=== PATIENT | male | born 1995 | race Caucasian/White ===

== ENCOUNTER 2016-05-23 20:51 | Emergency (ER) | payer SELFPAY ==
[2016-05-23 21:09] VITALS: BP 123/67; PULSE 82; TEMP 98.3; BMI 19.3
--- NOTE | 2016-05-23 21:14 | EDPRACDOC ---
- General Information Stated Complaint: DENTAL PAIN RT SIDED HEAD PAIN Time Seen by Provider: 05/23/16 21:04 Home Medications: Home Medications Amoxicillin Trihydrate [Amoxicillin] 500 mg PO TID #30 tab 05/23/16 Meloxicam [Mobic] 7.5 mg PO BID #20 tab 05/23/16 Allergies/Adverse Reactions: Allergies Allergy/AdvReac Type Severity Reaction Status Date / Time No Known Allergies Allergy Verified 05/23/16 21:13 - History of Present Illness Onset: LAST NIGHT HPI: PT PRESENTS TODAY WITH PAINFUL TOOTH SINCE LAST NIGHT. HAS BEEN BROKEN OFF FOR AWHILE, BUT JUST STARTED TO HURT. NO FEVER. Reported Tooth Problem: 4 Pain Severity: Reports: Moderate Relevant History of: Reports: None Modifying Factors: improves with: Cold, Chewing Associated Signs and Symptoms: Reports: None ED Past Medical History - History Reviewed Yes Nurses notes reviewed and agree except as marked - Patient Medical History Psychological History: Reports: Depression - Social Medical History Smoking Status: Heavy tobacco smoker (5 or more cigarettes/day or daily pipe/ cigar) Social History: Reports: Marijuana Use EDM Review of Systems - Review of Systems ROS Negative Except as Marked: Yes All systems reviewed and were negative except as marked Constitutional: No Symptoms Reported Eyes: No Symptoms Reported Ears: No Symptoms Reported Throat: No Symptoms Reported Nose: No Symptoms Reported Mouth: Tooth Pain Respiratory: No Symptoms Reported Cardiovascular: No Symptoms Reported Gastrointestinal: No Symptoms Reported Neurological: No Symptoms Reported Musculoskeletal: No Symptoms Reported Integumentary: No Symptoms Reported - Physical Exam Constitutional: Alert (Awake), No apparent distress Oriented to: Time, Person, Place Last recorded Vital Signs: Last Vital Signs Temp 98.3 F 05/23/16 21:08 Pulse 82 05/23/16 21:08 Resp 18 05/23/16 21:08 BP 123/67 05/23/16 21:08 Pulse Ox 99 05/23/16 21:08 Oxygen Pulse Oxygen Saturation 99 O2 Device Oxygen Flow Rate Fraction of Inspired Oxygen ( FIO2) - HEENT Head: Normal Eye Exam: Normal Oropharynx: Other (NOTED LARGE HOLE IN TOOTH #4; NO GUM SWELLING; MOST TEETH HAVE CAVITIES) Tympanic Membrane: Normal ENT EAC: Normal Nose: No Symptoms Reported Neck: Normal, Denies Pain, Midline - Respiratory/Cardiovascular Respiratory: Normal - CTA Cardiovascular: Normal - GI Palpation: Normal Tenderness: Non tender - Musculoskeletal Back: Normal Extremities: Normal - Integumentary Skin: Normal Lymphatics: Normal - Neurologic Cerebellar: Normal Mood Description: Normal Thought: Coherent Perception: Normal ED Tooth Problem Exam - HEENT Face: Normal Teeth: Right: Molar-2 Upper (HOLE) Gingiva: Normal Palate: Normal Mouth Range of Motion: Normal Sinuses: Normal Oropharynx: Normal Neck: Normal, Denies Pain, Midline Decision Time to Discharge: 21:12 - Departure Disposition: Home Condition: Good Final Diagnosis: Dental caries Instructions: Dental Caries (ED) Education/Counseling Given To: Patient Education/Counseling Given Regarding: Diagnosis, Treatment, Follow Up Referrals: None,No Provider [Primary Care Provider] - One Week [facility] [NonStaff] - One Week Prescriptions: New Amoxicillin Trihydrate [Amoxicillin] 500 mg PO TID #30 tab Meloxicam [Mobic] 7.5 mg PO BID #20 tab Forms: Excuse Note Additional Instructions: [facility] [phone]
[2016-05-23] MEDS ORDERED: KETOROLAC TROMETHAMINE 10 MG TAB PO ONE (21:18)
[2016-05-23] MEDS ORDERED: AMOXICILLIN 500 MG CAP PO ONE (21:18)
== END 2016-05-23 21:26 | disposition home or self-care (01) ==
LOC: EDMC 20:51
DX: K02.9 Dental caries, unspecified (principal)
CPT/HCPCS: 99282; J3490